=== PATIENT | female | born 1970 | race Caucasian/White ===

== ENCOUNTER → 2025-04-10 | Day surgery (SDC) | payer BC | END | disposition home or self-care (01) | LOC: FMAMMOTONE 10:07 → EDSTATUS 10:30 | PROVIDERS: ATTEND Surgery | PROC: 0H9V3ZX Drainage of Bilateral Breast, Percutaneous Approach, Diagnostic (ICD-10-PCS; principal; 2025-04-10) | DX: N60.91 Unspecified benign mammary dysplasia of right breast (principal); N60.11 Diffuse cystic mastopathy of right breast; N60.12 Diffuse cystic mastopathy of left breast; N64.89 Other specified disorders of breast | CPT/HCPCS: 19081; 19082; C1739; 76098-TC-FY; 88305-TC ==

== ENCOUNTER 2025-05-13 06:17 | Day surgery (SDC) | payer BC ==
[2025-05-12 15:49] VITALS: BMI 33.6
[2025-05-13 09:21] LABS: INR 1.05 (0.83-1.09); PROTHROMBIN TIME (PATIENT) 11.4 SEC (9.7-13.0)
[2025-05-13] MEDS ORDERED: LIDOCAINE HCL 1%, 10 MG/ML (20ML VIAL) ONE (09:54)
[2025-05-13] MEDS ORDERED: PROPOFOL 20 ML ONE (10:25)
[2025-05-13] MEDS ORDERED: LIDOCAINE HCL/PF 2% SDV 5ML VIAL ONE (10:25)
[2025-05-13] MEDS ORDERED: MIDAZOLAM HCL 2 MG/2 ML SINGLE DOSE VIAL ONE ×2 (10:25→10:32)
[2025-05-13] MEDS ORDERED: ONDANSETRON 4 MG/2 ML VIAL IVPUSH PRN (11:26)
[2025-05-13] MEDS: LIDOCAINE HCL 1%, 10 MG/ML (20ML VIAL) INF ONE (11:50)
[2025-05-13] MEDS ORDERED: ACETAMINOPHEN INJECTION 100 ML ONE (12:24)
[2025-05-13 14:28] VITALS: RESP 16; TEMP 97.3
[2025-05-13 15:11] VITALS: BP 147/96; PULSE 79
== END 2025-05-13 15:10 | disposition home or self-care (01) ==
LOC: JASU-SURG 06:17
PROVIDERS: ATTEND Surgery
PROC: 0HBT0ZZ Excision of Right Breast, Open Approach (ICD-10-PCS; principal; 2025-05-13 11:30)
DX: D05.11 Intraductal carcinoma in situ of right breast (principal)
CPT/HCPCS: 19281; 19301; A4648; 19282; 36415; 76098-TC-FY; 85610; 94760